=== PATIENT | male | born 1940 | race Two or more races ===

== ENCOUNTER 2016-10-19 12:30 | Outpatient (CLI) | payer MEDICARE, BC | END 2016-10-19 23:59 | disposition home or self-care (01) | LOC: WOU 12:30 | PROVIDERS: ATTEND Podiatrist Foot & Ankle Surgery | DX: R26.89 Other abnormalities of gait and mobility (principal); B35.3 Tinea pedis | CPT/HCPCS: G0463 ==

== ENCOUNTER 2017-03-22 11:50 | Outpatient (CLI) | payer MEDICARE, BC | END 2017-03-22 23:59 | disposition home or self-care (01) | LOC: WOU 11:50 | PROVIDERS: ATTEND Podiatrist Foot & Ankle Surgery | DX: L84 Corns and callosities (principal); G62.9 Polyneuropathy, unspecified; M79.89 Other specified soft tissue disorders; E78.5 Hyperlipidemia, unspecified; I10 Essential (primary) hypertension; Z88.6 Allergy status to analgesic agent; Z88.0 Allergy status to penicillin | CPT/HCPCS: G0463 ==

== ENCOUNTER 2017-04-13 11:50 | Outpatient (CLI) | payer MEDICARE, BC | END 2017-04-13 23:59 | disposition home or self-care (01) | LOC: WOU 11:50 | PROVIDERS: ATTEND Podiatrist Foot & Ankle Surgery | DX: I83.893 Varicose veins of bilateral lower extremities with other complications (principal); I82.591 Chronic embolism and thrombosis of other specified deep vein of right lower extremity | CPT/HCPCS: 93970-TC ==

== ENCOUNTER 2017-04-29 11:50 | Outpatient (CLI) | payer MEDICARE, BC | END 2017-04-29 23:59 | disposition home or self-care (01) | LOC: WOU 11:50 | PROVIDERS: ATTEND Podiatrist Foot & Ankle Surgery | DX: L84 Corns and callosities (principal); G62.9 Polyneuropathy, unspecified; Z88.6 Allergy status to analgesic agent; Z88.0 Allergy status to penicillin; Z89.431 Acquired absence of right foot | CPT/HCPCS: G0463 ==

== ENCOUNTER 2017-07-15 10:50 | Outpatient (CLI) | payer MEDICARE, BC | END 2017-07-15 23:59 | disposition home or self-care (01) | LOC: WOU 10:50 | PROVIDERS: ATTEND Podiatrist Foot & Ankle Surgery | DX: G60.9 Hereditary and idiopathic neuropathy, unspecified (principal); L85.1 Acquired keratosis [keratoderma] palmaris et plantaris; B35.1 Tinea unguium; L60.3 Nail dystrophy; M79.672 Pain in left foot; M79.671 Pain in right foot; Z89.421 Acquired absence of other right toe(s); I10 Essential (primary) hypertension; I83.90 Asymptomatic varicose veins of unspecified lower extremity | CPT/HCPCS: G0463 ==

== ENCOUNTER 2017-11-01 11:30 | Outpatient (CLI) | payer MEDICARE, BC | END 2017-11-01 23:59 | disposition home or self-care (01) | LOC: WOU 11:30 | PROVIDERS: ATTEND Podiatrist Foot & Ankle Surgery | DX: B35.3 Tinea pedis (principal); L85.1 Acquired keratosis [keratoderma] palmaris et plantaris; M79.672 Pain in left foot; M79.671 Pain in right foot; G60.9 Hereditary and idiopathic neuropathy, unspecified; B35.1 Tinea unguium; L60.3 Nail dystrophy; E78.5 Hyperlipidemia, unspecified; I10 Essential (primary) hypertension | CPT/HCPCS: G0463 ==